=== PATIENT | male | born 1970 | race Caucasian/White ===

== ENCOUNTER 2019-06-20 10:01 | Emergency (ER) | payer OTHER ==
[~2019-06-20] VITALS: Ht 200.7 cm; Wt 140.6 kg
[~2019-06-20 10:01] MED LIST: IBUPROFEN 600600 M1 PO; NORCO 5-325 TA1 EACH PO
[2019-06-20 11:14] LABS: URINE BILIRUBIN NEGATIVE (Negative); URINE BLOOD NEGATIVE (Negative); URINE CLARITY CLEAR; URINE COLOR YELLOW; URINE GLUCOSE-RANDOM* 3+ (Negative); URINE KETONES NEGATIVE (Negative); URINE LEUKOCYTES-REFLEX NEGATIVE (Negative); URINE NITRITE-REFLEX NEGATIVE (Negative); URINE PROTEIN (DIPSTICK) NEGATIVE (Negative); URINE UROBILINOGEN 0.2 E.U./dl (0.2-1.0)
[2019-06-20 11:49] LABS: HEMATOCRIT 42.9 % (42.0-52.0); HEMOGLOBIN 14.8 gm/dL (14.0-18.0); MCH 29.2 pg (26.0-34.0); MCHC 34.5 g/dL (28.0-37.0); MCV 84.6 fL (80.0-100.0); RBC 5.07 mil/uL (4.50-6.00); RDW 12.9 % (10.5-14.5)
[2019-06-20 12:01] LABS: CALCIUM 9.4 mg/dL (8.5-10.1); CREATININE 1.3 mg/dL (0.7-1.3); POTASSIUM 4.2 mmol/L (3.5-5.1)
[2019-06-20] MEDS ORDERED: BACTRIM DS TAB1 EACH PO (12:47)
[2019-06-20] MEDS ORDERED: NORCO 5-325 TA1 EAC1 PO (12:47)
[2019-06-20] MEDS ORDERED: KEFLEX500 M1 PO (12:47)
[2019-06-20] MEDS ORDERED: AUGMENTIN 875-1 EACH PO (13:53)
[2019-06-20] MEDS ORDERED: METFORMIN HCL500 MG PO (13:53)
[2019-06-20] MEDS ORDERED: DOXYCYCLINE 10100 MG PO (13:53)
[2019-06-20 14:11] VITALS: BP 134/80
== END 2019-06-20 14:16 | disposition left against medical advice (07) ==
LOC: ER 10:01
PROVIDERS: Physician Assistant
DX: S29.011A Strain of muscle and tendon of front wall of thorax, initial encounter (principal); L03.314 Cellulitis of groin; R73.9 Hyperglycemia, unspecified; Z85.118 Personal history of other malignant neoplasm of bronchus and lung; X50.0XXA Overexertion from strenuous movement or load, initial encounter; Y93.89 Activity, other specified; Y92.89 Other specified places as the place of occurrence of the external cause; Y99.9 Unspecified external cause status

== ENCOUNTER 2019-09-25 20:18 | Emergency (ER) | payer OTHER ==
[~2019-09-25] VITALS: Ht 200.7 cm; Wt 127.0 kg
[~2019-09-25 20:18] MED LIST changes: +AUGMENTIN 875-1 EACH PO; +BACTRIM DS TAB1 EACH PO; +DOXYCYCLINE 10100 MG PO; +KEFLEX500 M1 PO; +METFORMIN HCL500 MG PO; +NORCO 5-325 TA1 EAC1 PO
[2019-09-25] MEDS ORDERED: NORCO 5-325 TA1 EAC1 PO (20:50)
[2019-09-25] MEDS ORDERED: TIZANIDINE HCL4 M1 PO (20:50)
[2019-09-25 21:15] VITALS: BP 131/93
== END 2019-09-25 21:17 | disposition home or self-care (01) ==
LOC: ER 20:18
DX: S49.82XA Other specified injuries of left shoulder and upper arm, initial encounter (principal); Z91.041 Radiographic dye allergy status; Z85.118 Personal history of other malignant neoplasm of bronchus and lung; X50.1XXA Overexertion from prolonged static or awkward postures, initial encounter; Y93.89 Activity, other specified; Y92.89 Other specified places as the place of occurrence of the external cause; Y99.8 Other external cause status